=== PATIENT | male | born 1995 | race Caucasian/White ===

== ENCOUNTER 2018-05-24 04:35 | Emergency (ER) | payer OTHER ==
[~2018-05-24] VITALS: Wt 91.8 kg
[2018-05-24 04:38] VITALS: BP 135/93; PULSE 79; RESP 18
[2018-05-24] MEDS ORDERED: ALBUTEROL 0.083% (NEB) 2.5 MG/3 ML AMP HHN STA (06:18)
[2018-05-24] MEDS ORDERED: IPRATROPIUM (NEB) 0.5 MG/2.5 ML AMP HHN ONE (06:30)
[2018-05-24] MEDS ORDERED: DEXAMETHASONE 10 MG/ML 1 ML INJ IM ONE (06:30)
[2018-05-24] MEDS ORDERED: PRED20TA PO (07:06)
[2018-05-24] MEDS ORDERED: ALBU8.5H8 INH (07:06)
--- NOTE | 2018-05-24 07:13 | ERD ---
ER Documentation Chief Complaint Chief Complaint astma exacerbation x's 1 day, lost inhaler HPI 23-year-old male presenting with shortness of breath. He has a history of asthma and feels that he has an asthma exacerbation. He lost his inhaler. Denies any fever and has a dry cough. Denies other medical problems. NKDA. Surgical history denies. Social history denies ROS All systems reviewed and are negative except as per history of present illness. Medications Home Meds Active Scripts Prednisone* (Prednisone*) 20 Mg Tab, 40 MG PO DAILY for 4 Days, TAB Prov:TYRA LR PA-C 05/24/18 Albuterol Sulfate* (Proair HFA*) 8.5 Gm Hfa.aer.ad, 2 PUFF INH Q4, #1 INHALER Prov:TYRA LR PA-C 05/24/18 Allergies Allergies: Coded Allergies: No Known Allergy (Unverified , 04/14/13) PMhx/Soc Medical and Surgical Hx: pt denies Surgical Hx Hx Respiratory Disorders: Yes (asthma) Hx Alcohol Use: No Hx Substance Use: No Hx Tobacco Use: No Smoking Status: Never smoker FmHx Family History: No diabetes, No coronary disease, No other Physical Exam Vitals Vital Signs Date Temp Pulse Resp B/P (MAP) Pulse Ox O2 O2 Flow FiO2 Time Delivery Rate 05/24/18 79 18 97 21 06:29 05/24/18 97.8 79 18 135/93 96 04:38 (107) Physical Exam GENERAL: The patient is well-appearing, well-nourished, in no acute distress HEENT: Atraumatic. Conjunctivae are pink. Pupils equal, round, and reactive to light. There is no scleral icterus. Tympanic membranes clear bilaterally. Oropharynx clear. NECK: C-spine is soft and supple. There is no meningismus. There is no cervical lymphadenopathy CHEST: Mild wheezing heard throughout all lung cannon. No focal rhonchi or retractions. HEART: Regular rate and rhythm. No murmurs, clicks, rubs or gallops. Results 24 hrs Current Medications Medications Dose Sig/Filiberto Start Time Status Last (Trade) Ordered Route PRN Stop Time Admin Dose Reason Admin Albuterol 5 mg ONCE STAT 05/24/18 DC 05/24/18 (Proventil HH[facility] 06:18 06:27 0.083% (Neb)) 05/24/18 06:19 Ipratropium 0.5 mg ONCE ONCE 05/24/18 DC 05/24/18 [facility] 06:30 06:27 (Atrovent 05/24/18 06:31 0.02% (Neb)) 10 mg ONCE ONCE 05/24/18 DC 05/24/18 Dexamethasone IM 06:30 06:26 (Decadron) 05/24/18 06:31 Procedures/MDM ER course: Albuterol Atrovent breathing treatment given ED. Decadron given ED. MDM: 23-year-old male presenting with asthma exacerbation. I have low suspicion for respiratory distress or hypoxia. Patient is discharged with supportive medications. I have low suspicion for pneumonia. Patient is told symptoms change or worsen to return immediately to the ER. All questions answered at discharge Departure Diagnosis: Primary Impression: Asthma Condition: Stable Patient Instructions: Asthma Referrals: YASMIN JANE (PCP) Additional Instructions: FOLLOW UP WITH YOUR PRIMARY CARE PHYSICIAN TOMORROW.Return to this facility if you are not improving as expected. TYRA LR PA-C May 24, 2018 07:13
== END 2018-05-24 07:26 | disposition home or self-care (01) ==
LOC: FTE 04:35
DX: J45.901 Unspecified asthma with (acute) exacerbation (principal)
CPT/HCPCS: 94664; 96372; J1100; Z7502; Z7610